=== PATIENT | female | born 1985 | race Hispanic/Latino ===

== ENCOUNTER 2017-01-07 09:39 | Emergency (ER) | payer OTHER ==
[~2017-01-07] VITALS: Ht 157.5 cm; Wt 67.0 kg
[~2017-01-07 09:39] MED LIST: AMOXICILLIN500 MG PO; ATARAX,VISTARIL50 MG PO; FLEXERIL10 MG PO; FLEXERIL5 MG PO; MOTRIN800 MG PO; NOHOMEMEDS; PREDNISONE10 MG PO; ULTRAM50 MG PO; ZITHROMAX Z-PA250 MG PO
[2017-01-07 10:42] LABS: EOSINOPHIL (%) 1.5 % (0-5); EOSINOPHIL COUNT 0.1 K/uL (0-0.3); HEMATOCRIT 40.7 % (36.0-46.0); IMMATURE GRANULOCYTE (%) 0.3 % (0.0-0.7); IMMATURE GRANULOCYTE COUNT 0.2 K/uL; LYMPHOCYTE COUNT 1.1 K/uL (1.0-2.8); MCH 30.5 PG (29.0-34.0); MCHC 34.6 G/DL (30.0-36.0); MCV 88.1 FL (83-99); MEAN PLAT.VOLUME 10.3 uM^3 (9.5-12.4); MONOCYTE COUNT 0.6 K/uL (0-0.8); NEUTROPHIL (%) 71.9 % (45-76); NEUTROPHIL COUNT 4.4 K/uL (1.8-6.4); PLATELET COUNT 297 K/uL (156-360); RBC DIS.WIDTH-SD 38.4 % (39-53); RED BLOOD COUNT 4.62 M/uL (3.80-5.20); WHITE BLOOD COUNT 6.1 K/uL (4.1-10.2)
[2017-01-07 10:54] LABS: D-DIMER ELISA 0.16 mg/L FEU (< 0.57)
[2017-01-07 11:12] LABS: CHLORIDE 109 mEq/L (99-109); POTASSIUM 3.9 mEq/L (3.7-5.4); SODIUM 141 mEq/L (136-147)
[2017-01-07 11:14] LABS: GLUCOSE 94 mg/dL (70-99)
[2017-01-07 11:15] LABS: ANION GAP 10 MEQ/L (2-14)
[2017-01-07 11:16] LABS: TOTAL BILIRUBIN 0.9 mg/dL (0.0-1.0)
[2017-01-07 11:17] LABS: ALKALINE PHOSPHATASE 61 IU/L (3-129)
[2017-01-07 11:18] LABS: GFR ESTIMATE (CALCULATED) > 59 mL/min/
[2017-01-07 11:19] LABS: UREA NITROGEN (BUN) 5 mg/dL (9-23)
[2017-01-07 11:21] LABS: TROP-I INTERPRETATION NEGATIVE; TROPONIN-I 0.01 ng/mL (0.0-0.30)
[2017-01-07 11:30] LABS: QUANTITATIVE HCG < 4.0 MIU/ML
[2017-01-07 13:27] VITALS: BP 111/78
== END 2017-01-07 13:31 | disposition home or self-care (01) ==
LOC: EME 09:39
PROVIDERS: Emergency Medicine
DX: R00.2 Palpitations (principal)
CPT/HCPCS: 71020; 80053; 84484; 84702; 85025; 85379; 93005; 99281; 99285; J7030

== ENCOUNTER → 2017-07-13 | Outpatient (CLI) | payer OTHER | END | disposition home or self-care (01) | LOC: RES 08:00 | DX: R06.02 Shortness of breath (principal) | CPT/HCPCS: 94060; 94726; 94729 ==